=== PATIENT | male | born 1995 | race Caucasian/White ===

== ENCOUNTER 2018-02-14 21:37 | Emergency (ER) | payer OTHER ==
[2018-02-14] MEDS ORDERED: Ibuprofen TAB* 600 MG PO ONE (21:56)
--- NOTE | 2018-02-14 22:02 | UC ---
Head Injury HPI - HPI Summary HPI Summary: 22-year-old male comes in to clinic today with a chief complaint of head injury. Today at about 1500 hrs. he was bending down when he stood up he struck his forehead on a door. There is no loss of consciousness. His head hurt right away. He has not been nausea or vomiting. He has had some photophobia and reports the right side of his vision seems clear than his left side. He is headache was more on the top of his head definite at its worst it was a 7 out of 10. It is now decreased in intensity. No focal weakness or numbness. Took some ibuprofen which seemed to help with the headache. No difficulty with walking. Patient is not on any blood thinners. - History Of Current Complaint Stated Complaint: HEAD INJURY Time Seen by Provider: 02/14/18 21:56 PMH/Surg Hx/FS Hx/Imm Hx Previously Healthy: Yes - Family History Known Family History: Positive: Non-Contributory - Social History Occupation: Student Review of Systems All Other Systems Reviewed And Are Negative: Yes Constitutional: Positive: Negative Skin: Positive: Negative Eyes: Positive: Other - SEE HPI ENT: Positive: Negative Respiratory: Positive: Negative Cardiovascular: Positive: Negative Gastrointestinal: Positive: Negative. Negative: Vomiting, Nausea Motor: Positive: Negative Neurovascular: Positive: Negative Musculoskeletal: Positive: Negative Neurological: Positive: Headache - SEE HPI Psychological: Positive: Negative Is Patient Immunocompromised?: No Physical Exam Triage Information Reviewed: Yes Appearance: Well-Appearing, No Pain Distress, Well-Nourished Vital Signs Reviewed: Yes Eye Exam: Normal Eyes: Positive: Conjunctiva Clear, Other: - PERRLA/EOMI ENT: Positive: Pharynx normal, TMs normal. Negative: Nasal drainage Neck exam: Normal Neck: Positive: Supple, Nontender Respiratory: Positive: Lungs clear, Normal breath sounds, No respiratory distress Cardiovascular: Positive: RRR Musculoskeletal Exam: Normal Musculoskeletal: Positive: Strength Intact, ROM Intact Neurological Exam: Normal Neurological: Positive: Alert, Muscle Tone Normal, Other: - NIH 0 No peripheral field vision deficits. Patient reports vision in his right visual field is slightly clear then the vision in his left visual field. Finger-nose and standing on one leg was all normal. Psychological Exam: Normal Psychological: Positive: Age Appropriate Behavior Skin Exam: Normal Head Injury Course/Dx - Course Course Of Treatment: I do not find any focal neurologic deficit on the patient' s exam. There is no loss of vision in the visual palencia although the patient does report the vision on the left is not as clear as visualized on the right. Given the mechanism of injury and his present symptoms a head CT is not necessary. The plan at this time is ibuprofen or Tylenol and mental rest. But the patient know that if anything got worse with headache weakness numbness changes in vision changes in speech or pain he needed to get reevaluated in the emergency department where they have CT imaging available. - Differential Dx/Diagnosis Provider Diagnosis: Head injury, Concussion Discharge - Sign-Out/Discharge Documenting (check all that apply): Patient Departure All imaging exams completed and their final reports reviewed: No Studies - Discharge Plan Condition: Stable Disposition: HOME Patient Education Materials: Concussion (ED), Head Injury (ED) Forms: *School Release Referrals: [facility] [Provider Group] Additional Instructions: FOLLOW UP WITH [facility]. GO TO THE EMERGENCY DEPARTMENT FOR ANY WORSENING OF YOUR CONDITION; WEAKNESS, NUMBNESS, DIFFICULTIES WITH VISION OR SPEECH, UNEXPLAINED VOMITING OR QUESTIONS OR CONCERNS. - Billing Disposition and Condition Condition: STABLE Disposition: Home
[2018-02-14 22:05] VITALS: BP 126/82
== END 2018-02-14 22:17 | disposition home or self-care (01) ==
LOC: UCEAST 21:37
DX: S09.90XA Unspecified injury of head, initial encounter (principal); S06.0X0A Concussion without loss of consciousness, initial encounter; W22.09XA Striking against other stationary object, initial encounter; Y93.89 Activity, other specified; Y92.9 Unspecified place or not applicable
CPT/HCPCS: 99202; A9270-GY; G0463

== ENCOUNTER 2018-02-16 16:14 | Emergency (ER) | payer OTHER ==
--- NOTE | 2018-02-16 18:25 | ED ---
Head Injury - HPI Summary HPI Summary: The pt is a GARRETT, dizziness and vision changes since 3 days ago after he hit his against a door frame while trying to pick something from the floor. He notes dizziness, nausea, confusion,photophobia, difficulty speaking, and difficulty concentrating. He was seen at Urgent Care two days ago for concussion and given medications to mild relief. Home Medications Medication Instructions Recorded Confirmed Type Cetirizine* [ZyrTEC 10 MG TAB*] 10 mg PO DAILY 02/14/18 02/14/18 History - History Of Current Complaint Chief Complaint: EDHeadInjury Stated Complaint: DIZZINESS/CONFUSED Time Seen by Provider: 02/16/18 18:16 Hx Obtained From: Patient Mechanism Of Injury: Blunt Trauma Onset/Duration: Started Days Ago - 3 days, Still Present, Worse Since Severity Currently: Moderate Severity Initially: Moderate Pain Intensity: 7 Pain Scale Used: 0-10 Numeric Associated Signs And Symptoms: Confusion, Nausea, Headache, Visual Changes, Other: - difficulty speaking, and difficulty concentrating. - Allergies/Home Medications Allergies/Adverse Reactions: Allergies Allergy/AdvReac Type Severity Reaction Status Date / Time No Known Allergies Allergy Verified 02/16/18 16:34 PMH/Surg Hx/FS Hx/Imm Hx Previously Healthy: No Endocrine/Hematology History: Denies: Hx Diabetes Cardiovascular History: Denies: Hx Hypercholesterolemia, Hx Hypertension Sensory History: Denies: Hx Deafness Neurological History: Reports: Other Neuro Impairments/Disorders - Concussion- 02/14/2018 Denies: Hx Seizures - Cancer History Cancer Type, Location and Year: None reported - Surgical History Surgery Procedure, Year, and Place: hypospadias correction, . wisdom teeth extraction Infectious Disease History: No Infectious Disease History: Denies: Traveled Outside the [place] in Last 30 Days - Family History Known Family History: Negative: Cardiac Disease, Hypertension, Diabetes - Social History Occupation: Student Lives: Dormitory/Roommates Alcohol Use: Occasionally Substance Use Type: Reports: None Smoking Status (MU): Never Smoked Tobacco Review of Systems Constitutional: Other - Dizziness, confusion, difficulty speaking, and difficulty concentrating Positive: Photophobia, Other - Vision changes Positive: Nausea Positive: no symptoms reported All Other Systems Reviewed And Are Negative: Yes Physical Exam - Summary Physical Exam Summary: Constitutional: Well-developed, Well-nourished, Alert. (-) Distressed Skin: Warm, Dry HENT: Normocephalic; Atraumatic Eyes: Conjunctiva normal Neck: Musculoskeletal ROM normal neck. (-) JVD, (-) Stridor, (-) Tracheal deviation Cardio: Rhythm regular, rate normal, Heart sounds normal; Intact distal pulses; The pedal pulses are 2+ and symmetric. Radial pulses are 2+ and symmetric. (-) Murmur Pulmonary/Chest wall: Effort normal. (-) Respiratory distress, (-) Wheezes, (-) Rales Abd: Soft, (-) epigastric tenderness, (-) Distension, (-) Guarding, (-) Rebound Musculoskeletal: (-) Edema Lymph: (-) Cervical adenopathy Neuro: Alert, Oriented x3 Psych: Mood and affect Normal GCS: 15 Triage Information Reviewed: Yes Vital Signs On Initial Exam: Initial Vitals Temp Pulse Resp BP Pulse Ox 99.2 F 101 16 128/88 98 02/16/18 16:31 02/16/18 16:31 02/16/18 16:31 02/16/18 16:31 02/16/18 16:31 Vital Signs Reviewed: Yes Diagnostics - Vital Signs Vital Signs Temp Pulse Resp BP Pulse Ox 02/16/18 16:31 99.2 F 101 16 128/88 98 - Laboratory Lab Statement: Any lab studies that have been ordered have been reviewed, and results considered in the medical decision making process. - CT Brain CT CT Interpretation Completed By: Radiologist Summary of CT Findings: IMPRESSION: No traumatic intracranial abnormalities. The ED physician reviewed this radiology report. Re-Evaluation - Re-Evaluation First Eval Re-Evaluation Time: 20:26 Change: Improved - I discussed the results and dispo plan with the pt. Head Injury Course/Dx Course Of Treatment: A 22 year-old M/F presents to the ED with a CC of GARRETT, dizziness and vision changes since 3 days ago after he hit his against a door frame while trying to pick something from the floor. He notes dizziness, nausea , confusion, photophobia, difficulty speaking, and difficulty concentrating. A physical exam is unremarkable. A brain CT is unremarkable. Patient will be discharged with a final Dx of concussion and instructions to rest for recovery. Pt is agreeable with this plan. Allergies noted. - Diagnoses Provider Diagnoses: Concussion Discharge - Sign-Out/Discharge Documenting (check all that apply): Patient Departure - DC - Discharge Plan Condition: Stable Disposition: HOME Patient Education Materials: Concussion (ED) Forms: *School Release Referrals: [facility] [Medical Doctor] - Additional Instructions: Follow up with PCP in 3 days. Return to ED for any new or worsening symptoms - Billing Disposition and Condition Condition: STABLE Disposition: Home - Attestation Statements Document Initiated by Tanjaibe: Yes Documenting Scribe: Shanna Crump Provider For Whom Irma is Documenting (Include Credential): Dr. Dayo Rizo MD Scribe Attestation: Shanna Frye , scribed for Dr. Dayo Rizo MD on 02/18/18 at 1127. Scribe Documentation Reviewed: Yes Provider Attestation: The documentation as recorded by the Shanna jefferson accurately reflects the service I personally performed and the decisions made by me, Dr. Dayo Rizo MD Status of Scribe Document: Viewed
[2018-02-16 20:26] VITALS: BP 133/83
== END 2018-02-16 20:29 | disposition home or self-care (01) ==
LOC: ED 16:14
DX: S06.0X9A Concussion with loss of consciousness of unspecified duration, initial encounter (principal); W22.8XXA Striking against or struck by other objects, initial encounter; Y92.9 Unspecified place or not applicable
CPT/HCPCS: 70450; 99283

== ENCOUNTER 2018-06-06 17:34 | Emergency (ER) | payer OTHER ==
--- OUTSIDE RECORDS SUMMARY | 2018-06-06 17:39 | XMS REPORT | Continuity of Care Document ---
:1995 External Reference #:[id number] Author Name Laney Rice Care Team Providers Name Role Phone Ciara Guerrero M.D. Primary Care Physician Unavailable Payers Date Identification Numbers Payment Provider Subscriber Policy Number: [id number] [employer] Giuliano Hall PayID: [id number] [address] [place] [address] Advance Directives Description No Information Available Problems Date Description Provider Status Onset: 05/13/2018 Palpitations Leo Salas M.D., [facility] [place] Active Onset: 05/13/2018 Chest pain Leo Salas M.D., [facility] Active Family History Date Family Member(s) Observation Comments General Hypertension Siblings None Social History Type Date Description Comments Sex Unknown Marital Status Single Lives With Roommate Occupation Student ETOH Use Currently consumes alcohol Tobacco Use Start: Unknown Light tobacco smoker (10 or fewer cigarettes/day) Recreational Drug Use Never Used Drugs Smoking Status Reviewed: 05/13/18 Light tobacco smoker (10 or fewer cigarettes/day) Exercise Type/Frequency Exercises regularly Allergies, Adverse Reactions, Alerts Description No Known Drug Allergies Medications Medication Date Status Form Strength Qnty SIG Indications Ordering Provider Zyrtec Allergy Active Capsules 10mg 1 by Unknown 00 mouth every day Vitamin D3 Active Tablets [id number] one by Unknown Ultra Potency 00 mouth once weekly B Complex Active Capsules 1 by Unknown 00 mouth every day Immunizations Description No Information Available Vital Signs Date Vital Result Comment 05/13/2018 1:01pm Height 72 inches 6'0" Weight 176.00 lb BP Systolic Sitting 120 mmHg lue reg cuff BP Diastolic Sitting 70 mmHg lue reg cuff BP Systolic Standing 120 mmHg lue reg cuff BP Diastolic Standing 68 mmHg lue reg cuff Respiratory Rate 12 /min BMI (Body Mass Index) 23.9 kg/m2 Results Description No Information Available Procedures Date Code Description Status 05/13/2018 00688 EKG Tracing & Interpretation Completed Encounters Description No Information Available Plan of Treatment Future Appointment(s):06/15/2018 8:45 am - [facility] ECHO Schedule at [facility]06/15/2018 9:15 am - Leo Salas M.D., [facility] at [facility]05/26/2018 3:00 pm - Traveling ECHO 1 at [facility]05/13/2018 - Leo Salas M.D., [facility], VIVUMW30.9 Chest pain, unspecifiedNew Orders:Stress Test, Treadmill, No Imaging, Ordered: Echocardiogram, Scheduled: 05/26/18Comments:As discussed, we will further evaluate your heart. Please avoid caffeine and smoking. You may start the Citalopram which was prescribed to you from a cardiac standpoint.R00.2 PalpitationsNew Orders:[facility], Ordered: Follow up:after cardiac testing. Need blood work from PCP
[2018-06-06 17:43] VITALS: BP 121/75
--- NOTE | 2018-06-06 18:29 | UC ---
Upper Extremity HPI - HPI Summary HPI Summary: 22-year-old male comes in with a chief complaint of bilateral elbow pain and decreased range of motion. Patient woke up this morning with bilateral elbow pain. It hurts when he moves the joints. The left is worse than the right. Pain is worse when he attempts to fully extend the elbows. The joint since also not hot to touch. He tried ibuprofen any not sure if it helped. No known trauma. He did work out for the first time in a long time 2 days ago. His elbows felt fine yesterday. No known exposure to ticks. No history of Lyme disease. On Review of systems the patient does state his temperature at home was recorded at 100.4. He does not have a fever here. He also been having paradoxic frontal headache for about a week. He had a concussion in February 2018 and saw the concussion clinic in [place]. Overall he rarely has any concussion symptoms anymore. No weakness or numbness no myalgias the rest of his joints feel normal. - History of Current Complaint Chief Complaint: UCUpperExtremity Stated Complaint: ELBOW COMPLAINT,FEVER Time Seen by Provider: 06/06/18 17:46 Pain Intensity: 7 - Allergies/Home Medications Allergies/Adverse Reactions: Allergies Allergy/AdvReac Type Severity Reaction Status Date / Time No Known Allergies Allergy Verified 06/06/18 17:43 Home Medications: Home Medications Cholecalciferol TAB* [Vitamin D TAB*] 50,000 units PO WEEKLY 06/06/18 [History Confirmed 06/06/18] PMH/Surg Hx/FS Hx/Imm Hx Previously Healthy: Yes - CONCUSSION Psychological History: Anxiety - Surgical History Surgical History: Yes Surgery Procedure, Year, and Place: hypospadias correction, infant. wisdom teeth extraction - Family History Known Family History: Positive: Non-Contributory Negative: Cardiac Disease, Hypertension, Diabetes - Social History Alcohol Use: None Substance Use Type: None Smoking Status (MU): Never Smoked Tobacco Review of Systems All Other Systems Reviewed And Are Negative: Yes Constitutional: Positive: Other - SEE HPI Skin: Positive: Negative Eyes: Positive: Negative ENT: Positive: Negative Respiratory: Positive: Negative Cardiovascular: Positive: Negative Gastrointestinal: Positive: Negative Motor: Positive: Decreased ROM Neurovascular: Positive: Negative Musculoskeletal: Positive: Other: - SEE HPI Neurological: Positive: Headache Psychological: Positive: Negative Is Patient Immunocompromised?: No Physical Exam Triage Information Reviewed: Yes Appearance: Well-Appearing, Well-Nourished, Pain Distress - WITH ELBOW ROM Vital Signs: Initial Vital Signs Temp 99.3 F 06/06/18 17:37 Pulse 83 06/06/18 17:37 Resp 14 06/06/18 17:37 BP 121/75 06/06/18 17:37 Pulse Ox 100 06/06/18 17:37 Vital Signs Reviewed: Yes Eye Exam: Normal Eyes: Positive: Conjunctiva Clear ENT: Positive: TMs normal Neck exam: Normal Neck: Positive: Supple Respiratory: Positive: Lungs clear, Normal breath sounds, No respiratory distress Cardiovascular: Positive: RRR Musculoskeletal: Positive: Other: - Normal radial pulses bilaterally normal radial pulses bilaterally. Normal capillary refill in the hands and arms. No sensation deficit deficits to the arms. Fingers hands wrists and shoulders have full range of motion full-strength. The elbows are not erythematous they' re not swollen they're not hot to touch. Patient is able to supinate and pronate but with some pain with supination. Patient's able to open his elbows and extension almost 150-160. The right elbow opens up further than the left. Neurological Exam: Normal Neurological: Positive: Alert, Muscle Tone Normal Psychological Exam: Normal Psychological: Positive: Age Appropriate Behavior Skin Exam: Normal Upper Extremity Course/Dx - Course Course Of Treatment: I discussed the x-rays with the patient. I do not see any fracture radiologist reading is pending. Given that both his elbows hurt and he recently worked out most likely cause of the pain is a tendinitis in the elbows. We'll treat with ibuprofen 600 mg by mouth every 6 hours as needed. Other possibilities do include infection such as Lyme disease. Patient reported a temperature of 100.4 at home. He was afebrile here. Also checking a CRP CBC and Lyme screen. Patient's leaving for home in [place] tomorrow in the morning. He plans on calling for the lab results and final x-ray report. We discussed that if the elbows got worse or if he started feeling ill with fevers and chills he needed to get reevaluated again right away. - Differential Dx/Diagnosis Provider Diagnosis: Bilateral elbow joint pain Discharge - Sign-Out/Discharge Documenting (check all that apply): Patient Departure All imaging exams completed and their final reports reviewed: No - Discharge Plan Condition: Stable Disposition: HOME Patient Education Materials: Arthralgia (ED) Referrals: [facility] REFERRAL [Outside] [facility] [Provider Group] [facility] [Provider Group] Additional Instructions: FOLLOW UP WITH YOUR PRIMARY CARE DOCTOR OR SPORTS MEDICINE IF NOT COMPLETELY IMPROVED. GET REEVALUATED SOONER IF YOUR CONDITION WORSENS; PAIN, FEVER, YOU FEEL ILL OR ANY QUESTIONS OR CONCERNS. - Billing Disposition and Condition Condition: STABLE Disposition: Home
--- NOTE | 2018-06-07 09:14 | UC ---
- Progress Note Progress Note: X-ray read as negative. No change in treatment. Report: Both elbows demonstrate normal articular alignment and preserved joint spaces without arthropathic change. Negative for joint effusions. Negative for fracture or focal osseous lesions. Unremarkable soft tissue contours. IMPRESSION: #. Negative bilateral elbow radiographic exam. Course/Dx - Diagnoses Provider Diagnoses: Bilateral elbow joint pain Discharge - Sign-Out/Discharge Documenting (check all that apply): Patient Departure All imaging exams completed and their final reports reviewed: Yes - Discharge Plan Condition: Stable Disposition: HOME Patient Education Materials: Arthralgia (ED) Referrals: [facility] [Provider Group] [facility] [Provider Group] [facility]IAN REFERRAL [Outside] Additional Instructions: FOLLOW UP WITH YOUR PRIMARY CARE DOCTOR OR SPORTS MEDICINE IF NOT COMPLETELY IMPROVED. GET REEVALUATED SOONER IF YOUR CONDITION WORSENS; PAIN, FEVER, YOU FEEL ILL OR ANY QUESTIONS OR CONCERNS. - Billing Disposition and Condition Condition: STABLE Disposition: Home
[2018-06-07 10:50] LABS: ABS Basophils 0.1 10^3/ul (0-0.2); ABS Eosinophils 0 10^3/ul (0-0.6); ABS Lymphocytes 1.4 10^3/ul (1.0-4.8); ABS Monocytes 0.7 10^3/ul (0-0.8); ABS Neutrophils 7.5 10^3/ul (1.5-7.7); ABS Nucleated RBC 0 10^3/ul; Eosinophil % 0.4 %; Hematocrit 43 % (36-46); Hemoglobin 14.8 g/dL (14.0-18.0); Lymphocyte % 14.2 %; Mean Corpuscular HGB Conc 35 g/dL (31-36); Mean Corpuscular Hemoglobin 30 pg (27-31); Mean Corpuscular Volume 87 fL (80-94); Mean Platelet Volume 10.2 fL (7.4-10.4); Nucleated Red Blood Cells % 0; Platelet Count 191 10^3/uL (150-450); Red Cell Distribution Width 13 % (10.5-15); White Blood Count 9.8 10^3/uL (3.5-10.8)
--- NOTE | 2018-06-09 16:25 | UC ---
- Progress Note Progress Note: 06/09/2018 Lyme screen: negative No change Cara Beatty PA-C Course/Dx - Diagnoses Provider Diagnoses: Bilateral elbow joint pain Discharge - Sign-Out/Discharge Documenting (check all that apply): Post-Discharge Follow Up All imaging exams completed and their final reports reviewed: Yes - Discharge Plan Condition: Stable Disposition: HOME Patient Education Materials: Arthralgia (ED) Referrals: [facility] [Provider Group] [facility] [Provider Group] [facility] [Outside] Additional Instructions: FOLLOW UP WITH YOUR PRIMARY CARE DOCTOR OR SPORTS MEDICINE IF NOT COMPLETELY IMPROVED. GET REEVALUATED SOONER IF YOUR CONDITION WORSENS; PAIN, FEVER, YOU FEEL ILL OR ANY QUESTIONS OR CONCERNS. - Billing Disposition and Condition Condition: STABLE Disposition: Home
== END 2018-06-06 19:45 | disposition home or self-care (01) ==
LOC: UCEAST 17:34
DX: M25.522 Pain in left elbow (principal); M25.521 Pain in right elbow
CPT/HCPCS: 36415; 85025; 86140; 86618; 99211; G0463

== ENCOUNTER 2019-01-16 16:04 | Emergency (ER) | payer OTHER ==
[2019-01-16 16:23] VITALS: BP 111/66
[2019-01-16] MEDS ORDERED: Acetaminophen TAB* 325 MG PO ONE (16:29)
[2019-01-16] MEDS ORDERED: Ibuprofen TAB* 400 MG PO ONE (16:29)
--- NOTE | 2019-01-16 16:35 | UC ---
Throat Pain/Nasal Juan Jose HPI - HPI Summary HPI Summary: started having ST and fatigue 5 day ago, progressed over days to fever, vomited last night, not today. has taken no meds today. - History of Current Complaint Chief Complaint: UCGeneralIllness Stated Complaint: SORE THROAT, VOMITING, FEVER Time Seen by Provider: 01/16/19 16:12 Hx Obtained From: Patient Onset/Duration: Gradual Onset Severity: Moderate Pain Intensity: 8 Cough: Nonproductive Associated Signs & Symptoms: Positive: Fever, Vomiting - Allergies/Home Medications Allergies/Adverse Reactions: Allergies Allergy/AdvReac Type Severity Reaction Status Date / Time No Known Allergies Allergy Verified 01/16/19 16:21 Home Medications: Home Medications Fluboxime - Ssri 50 mg PO BID 01/16/19 [History Confirmed 01/16/19] PMH/Surg Hx/FS Hx/Imm Hx Previously Healthy: Yes Psychological History: Depression - Surgical History Surgical History: Yes Surgery Procedure, Year, and Place: hypospadias correction, . wisdom teeth extraction - Family History Known Family History: Positive: Non-Contributory Negative: Cardiac Disease, Hypertension, Diabetes - Social History Occupation: Employed Full-time - senior [employer] Lives: With Family Alcohol Use: Occasionally Substance Use Type: None Substance Use Comment - Amount & Last Used: hx of social cocaine, and MJ use - none in a year Smoking Status (MU): Former Smoker Review of Systems All Other Systems Reviewed And Are Negative: Yes Constitutional: Positive: Fever, Fatigue Skin: Positive: Negative. Negative: Rash ENT: Positive: Sore Throat, Sinus Congestion. Negative: Ear Ache Respiratory: Positive: Negative Cardiovascular: Positive: Negative Gastrointestinal: Positive: Vomiting. Negative: Abdominal Pain, Diarrhea Genitourinary: Positive: Negative Neurological: Positive: Headache - intermittent Psychological: Positive: Negative Is Patient Immunocompromised?: No Physical Exam Triage Information Reviewed: Yes Appearance: Well-Appearing, No Pain Distress, Well-Nourished Vital Signs: Initial Vital Signs Temp 101.3 F 01/16/19 16:14 Pulse 115 01/16/19 16:14 Resp 18 01/16/19 16:14 BP 111/66 01/16/19 16:14 Pulse Ox 97 01/16/19 16:14 Vital Signs Reviewed: Yes Eye Exam: Normal Eyes: Positive: Conjunctiva Clear ENT: Positive: Pharynx normal, Nasal congestion, TMs normal. Negative: Sinus tenderness Neck exam: Normal Neck: Positive: Supple, Nontender, No Lymphadenopathy Respiratory Exam: Normal Respiratory: Positive: Lungs clear Cardiovascular Exam: Normal Cardiovascular: Positive: RRR Abdominal Exam: Normal Abdomen Description: Positive: Nontender, No Organomegaly, Soft. Negative: CVA Tenderness (R), CVA Tenderness (L) Bowel Sounds: Positive: Present Neurological Exam: Normal Psychological Exam: Normal Skin Exam: Normal Skin: Negative: Rashes Re-Evaluation - Re-Evaluation First Eval Change: Improved - Temp 100.5 Throat Pain/Nasal Course/Dx - Differential Dx/Diagnosis Differential Diagnosis/HQI/PQRI: Influenza, Sinusitis, Tonsillitis, URI Provider Diagnosis: Upper respiratory infection Discharge ED - Sign-Out/Discharge Documenting (check all that apply): Patient Departure All imaging exams completed and their final reports reviewed: No Studies - Discharge Plan Condition: Good Disposition: HOME Patient Education Materials: Upper Respiratory Infection (DC) Forms: *Work Release Referrals: Ciara Ybarra MD [Primary Care Provider] - 2 Days (if symptoms not improving) Additional Instructions: Drink plenty of fluids and rest use Tylenol or ibuprofen to treat fever and pain/sore throat - Billing Disposition and Condition Condition: GOOD Disposition: Home - Attestation Statements Provider Attestation: Per institutional requirements, I have reviewed the chart, however, I was not consulted specifically or made aware of this patient by the midlevel provider. I did not personally evaluate, interact with , or disposition this patient.
[2019-01-16 17:55] LABS: Influenza A Molecular NEGATIVE (Negative); Influenza B Molecular NEGATIVE (Negative)
== END 2019-01-16 18:12 | disposition home or self-care (01) ==
LOC: UCEAST 16:04
DX: J06.9 Acute upper respiratory infection, unspecified (principal); R53.83 Other fatigue; Z87.891 Personal history of nicotine dependence
CPT/HCPCS: 87651; 99212; A9270-GY; G0463